=== PATIENT | female | born 1975 | race Two or more races ===

== ENCOUNTER 2017-04-07 04:04 | Emergency (ER) | payer MEDICAID ==
[~2017-04-07] VITALS: Ht 162.6 cm; Wt 97.1 kg
[2017-04-07 05:03] LABS: Basophils # (auto) 0 uL; Basophils % (auto) 0.4 % (0.0-2.0); Eosinophils # (auto) 0.1 uL; Eosinophils % (auto) 1.1 % (0.0-7.0); Hematocrit 41.1 % (36.0-46.0); Lymphocytes # (auto) 2.2 uL; Mean Corpuscular Hemoglobin 31.5 pg (28.0-32.0); Mean Corpuscular Hgb Conc. 34.1 g/dL (32.0-36.0); Mean Corpuscular Volume 92.2 fL (80.0-100.0); Mean Platelet Volume 7.1 fL (7.4-10.4); Monocytes # (auto) 0.4 uL; Monocytes % (auto) 4.7 % (0.0-12.0); Neutrophils # (auto) 6.3 uL; Neutrophils % (auto) 69.8 % (37.0-80.0); Platelet Count (auto) 447 10^3/uL (140-450); Red Cell Distribution Width 13.9 % (11.6-16.0); White Blood Cell 9.1 10^3/uL (4.4-10.8)
[2017-04-07 05:15] VITALS: BP 122/79
[2017-04-07 05:16] LABS: Albumin 3.6 g/dL (3.4-5.0); BUN/Creatinine Ratio 14.7; Calcium 8.7 mg/dL (8.5-10.1); Potassium 3.6 mmol/L (3.5-5.1)
[2017-04-07 05:19] LABS: Bilirubin, Total 0.3 mg/dL (0.2-1.0); Total Protein 7.7 g/dL (6.4-8.2)
[2017-04-07 05:19] LABS: Urine Bilirubin Negative (Negative); Urine Color Yellow (Yellow); Urine Glucose Normal (Normal); Urine Hyaline Cast FEW /lpf (0 - 2); Urine Ketone Negative (Negative); Urine Mucus FEW (None Seen); Urine Nitrite Negative (Negative); Urine RBC 9 /hpf (0 - 4); Urine Squamous Epithelial Cell FEW /hpf (<5); Urine Urobilinogen Normal (Negative); Urine pH 5.5 (5.0-8.0)
[2017-04-07 05:27] LABS: Urine Blood 1+ /uL (Negative)
[2017-04-07] MEDS ORDERED: HYDROcodone-ACET 10/325MG TAB PO ONE (05:30)
[2017-04-07] MEDS ORDERED: KETOROLAC TROMETH 60MG/2ML VIAL IM ONE (05:30)
[2017-04-07] MEDS ORDERED: LACTULOSE 20Gm/30ML SOLN PO ONE (06:45)
== END 2017-04-07 07:08 | disposition home or self-care (01) ==
LOC: ER 04:05
DX: R10.31 Right lower quadrant pain (principal); K59.00 Constipation, unspecified; Z90.49 Acquired absence of other specified parts of digestive tract
CPT/HCPCS: 36415; 74176; 80053; 81001; 81025; 85025; 96372; 99285; J1885